=== PATIENT | male | born 1955 | race Caucasian/White ===

== ENCOUNTER → 2018-06-28 | Outpatient (CLI) | payer BC, OTHER ==
--- NOTE | 2018-06-28 10:01 | 2DMMODE ---
[facility] [place] [address] 2 D/M-MODE ECHOCARDIOGRAM Name: JILLKEIRY Room #: REG Gustavo#: [id number] Admission: 06/28/18 Attend Phys: Tanvir Roach, Discharge: Date of : 57 Date of Service: 06/28/18 1001 Report #: [id number] THIS REPORT FOR: //name// APPROVED REPORT Study performed: 06/28/2018 09:07:14 EXAM: Comprehensive 2D, Doppler, and color-flow Echocardiogram Patient Location: Out-Patient Status: routine BSA: 2.11 HR: 57 bpm BP: 128/82 mmHg Rhythm: NSR Other Information Study Quality: Adequate/low windows, pectus chest Indications CAD. Hx: Stents, HTN, HLP 2D Dimensions RVDd: 35.00 mm IVSd: 9.53 (7-11mm) LVOT Diam: 23.17 (18-24mm) LVDd: 53.14 mm PWd: 8.51 (7-11mm) LVDs: 39.43 (25-40mm) Aortic Root: 41.21 mm Volumes Left Atrial Volume (Systole) Single Plane 4CH: 21.79 mL Single Plane 2CH: 28.16 mL LA ESV Index: 13.00 mL/m2 Aortic Valve AoV Peak Zander.: 1.39 m/s AO Peak Gr.: 7.69 mmHg LVOT Max P.98 mmHg LVOT Max V: 1.12 m/s FLORENTIN Vmax: 3.39 cm2 Mitral Valve E/A Ratio: 0.7 MV Decel. Time: 224.22 ms MV E Max Zander.: 0.64 m/s [facility] [address] [address] 2 D/M-MODE ECHOCARDIOGRAM Name: KEIRY MELCHOR Room #: [facility]#: [id number] Admission: 06/28/18 Attend Phys: Tanvir Roach, Discharge: Date of : 57 Date of Service: 06/28/18 1001 Report #: [id number] MV A Zander.: 0.89 m/s MV PHT: 65.02 ms IVRT: 87.66 ms Pulmonary Valve PV Peak Zander.: 0.85 m/s PV Peak Gr.: 2.91 mmHg Pulmonary Vein P Vein S: 0.75 m/s P Vein A: 0.38 m/s P Vein D: 0.43 m/s P Vein A Dur.: 106.1 msec P Vein S/D Ratio: 1.74 Tricuspid Valve RAP Estimate: 5.00 mmHg Left Ventricle The left ventricle is normal size. There is normal left ventricular wall thickness. Left ventricular systolic function is normal. LVEF is 50-55%. Mild diastolic dysfunction is present (impaired relaxation pattern). Right Ventricle The right ventricle is normal size. The right ventricular systolic function is normal. Atria The left atrium size is normal. The right atrium size is normal. Aortic Valve The aortic valve is normal in structure. No aortic regurgitation is present. There is no aortic valvular stenosis. Mitral Valve The mitral valve is normal in structure. Trace mitral regurgitation. No evidence of mitral valve stenosis. Tricuspid Valve The tricuspid valve is normal in structure. Trace tricuspid regurgitation. Unable to assess PA pressure. Pulmonic Valve Pulmonic valve is not well visualized. Great Vessels Aortic root is dilated at 4.1cm. Ascending aorta is not well [facility] [address] [place] [address] 2 D/M-MODE ECHOCARDIOGRAM Name: KEIRY MELCHOR Room #: REG Gustavo#: [id number] Admission: 06/28/18 Attend Phys: Tanvir Roach, Discharge: Date of : 57 Date of Service: 06/28/18 1001 Report #: [id number] visualized. IVC is normal in size and collapses >50% with inspiration. Pericardium There is no pericardial effusion. <Conclusion> The left ventricle is normal size. There is normal left ventricular wall thickness. Left ventricular systolic function is normal. Mild diastolic dysfunction is present (impaired relaxation pattern). The right ventricle is normal size. The left atrium size is normal. The right atrium size is normal. The aortic valve is normal in structure. Trace mitral regurgitation. Trace tricuspid regurgitation. <ELECTRONICALLY SIGNED> By: Silvio Burgos MD 06/28/18 1001 1001 1001 Silvio Burgos MD /INF
== END ==
LOC: CV 06:47
DX: I51.7 Cardiomegaly (principal); I25.10 Atherosclerotic heart disease of native coronary artery without angina pectoris